=== PATIENT | male | born 1980 | race Caucasian/White ===

== ENCOUNTER → 2020-05-26 | Outpatient (CLI) | payer MEDICAID ==
[~2020-05-26] MED LIST: IOHEXOL-300 100 ML BOTTLE ONE
== END | disposition home or self-care (01) ==
LOC: CT 09:38
PROVIDERS: ATTEND Internal Medicine Hematology & Oncology
DX: D49.6 Neoplasm of unspecified behavior of brain (principal); N62 Hypertrophy of breast; I77.89 Other specified disorders of arteries and arterioles
CPT/HCPCS: 71260; Q9967

== ENCOUNTER 2021-09-25 12:00 | Inpatient (IN) | payer MEDICAID ==
[~2021-09-25] VITALS: Ht 182.9 cm; Wt 132.9 kg
[2021-09-25 14:20] LABS: BASOPHILS % 0.2 % (0.0-2.0); EOSINOPHILS % 1.5 % (0.0-5.0); HEMATOCRIT. 42.8 % (42.0-52.0); HEMOGLOBIN. 13.9 g/dL (14.0-18.0); LYMPHOCYTES % 23.2 % (20.0-50.0); MEAN CORPUSCULAR HEMOGLOBIN 30.2 pg (28.0-32.0); MEAN PLATELET VOLUME 10.6 fl (7.4-10.4); MONOCYTES % 9.4 % (2.0-8.0); NEUTROPHILS % 65.7 % (40.0-76.0); PLATELET 150 x1000/uL (130-400); RED CELL DISTRIBUTION WIDTH 12.8 % (11.6-14.6)
[2021-09-25 14:29] LABS: CHLORIDE 104 mEq/L (98-107)
[2021-09-25 14:33] LABS: ETHANOL BLOOD < 10 mg/dL
[2021-09-25 14:45] LABS: VALPROIC ACID < 3.0 ug/mL (50-100)
[2021-09-25] MEDS ORDERED: LORAZEPAM 2MG/ML CPJ IV NR (14:45)
[2021-09-25] MEDS ORDERED: LIDOCAINE HCL/PF 1% 2ML VIAL ONE (15:09)
[2021-09-25] MEDS ORDERED: LEVETIRACETAM 500MG PREMIX 100 ML IV NR (15:15)
[2021-09-25] MEDS ORDERED: LEVETIRACETAM 1000MG PREMIX 100 ML IV NR (15:15)
[2021-09-25] MEDS ORDERED: LEVETIRACETAM 500MG PREMIX 100 ML IV SCH (15:30)
[2021-09-25 15:32] LABS: BG BASE EXCESS -5.8 mmol/L (-2.0-2.0); BG CARBOXYHEMOGLOBIN 0.2 % (0.5-1.5); BG DEOXYHEMOGLOBIN 0.4 % (0.0-5.0); BG HCO3 ACT 19.5 mmol/L (22.0-26.0); BG METHEMOGLOBIN 0.2 % (0.0-1.5); BG OXYGEN SATURATION 99.6 % (92.0-98.5); BG OXYHEMOGLOBIN 99.2 % (94.0-97.0); BG PCO2 37.9 mmHg (35.0-45.0); BG PH 7.329 (7.350-7.450); BG PO2 391.3 mmHg (75.0-100.0); BG SAMPLE SITE RIGHT RADIAL; BG TOTAL HEMOGLOBIN 14.5 g/dL (12.0-18.0); BG VENT MODE MASK - NRB
[2021-09-25 16:23] LABS: CLARITY URINE CLEAR (CLEAR); COLOR URINE YELLOW (YELLOW); KETONES URINE NEGATIVE (NEGATIVE); LEUKOCYTE ESTERASE URINE NEGATIVE (NEGATIVE); NITRITE URINE NEGATIVE (NEGATIVE); OCCULT BLOOD URINE NEGATIVE (NEGATIVE); PROTEIN URINE TRACE (NEGATIVE); UROBILINOGEN URINE 0.2 E.U./dL (0.2-1.0)
[2021-09-25 16:34] LABS: *BENZODIAZEPINES SCREEN URINE NEGATIVE (NEGATIVE); *COCAINE SCREEN URINE NEGATIVE (NEGATIVE)
[2021-09-25 16:35] LABS: *AMPHETAMINES SCREEN URINE NEGATIVE (NEGATIVE); *BARBITURATES SCREEN URINE NEGATIVE (NEGATIVE); CANNABINOID URINE SCREEN NEGATIVE (NEGATIVE); METHADONE URINE SCREEN NEGATIVE (NEGATIVE); OPIATES URINE SCREEN NEGATIVE (NEGATIVE); PHENCYCLIDINE URINE SCREEN NEGATIVE (NEGATIVE)
[2021-09-25 18:20] VITALS: BP 126/60
[2021-09-25] MEDS ORDERED: LORAZEPAM 2MG/ML CPJ IV PRN (18:45)
[2021-09-25] MEDS ORDERED: ONDANSETRON HCL 4MG/2ML INJ IV PRN (19:15)
[2021-09-25 20:00] VITALS: BP 109/62
[2021-09-25] MEDS: ENOXAPARIN 30MG/0.3ML SYR SUBCUT SCH (21:30)
[2021-09-26] VITALS: BP 111/74
[2021-09-26] MEDS ORDERED: TOPI100T37 PO (03:10)
[2021-09-26] MEDS ORDERED: LEVE10006 PO (03:10)
[2021-09-26 04:00] VITALS: BP 103/55
[2021-09-26 08:05] VITALS: BP 109/61
[2021-09-26] MEDS: LEVETIRACETAM 500MG TABLET PO SCH ×2 (08:35→16:51)
[2021-09-26] MEDS: ENOXAPARIN 30MG/0.3ML SYR SUBCUT SCH ×2 (08:36→21:28)
[2021-09-26] MEDS ORDERED: ENOXAPARIN 40MG/0.4ML SYR SUBCUT SCH (09:00)
[2021-09-26] MEDS ORDERED: PSYL3.4P5 PO (11:03)
[2021-09-26] MEDS ORDERED: OLAN15TA35 MT (11:03)
[2021-09-26] MEDS ORDERED: DOCU-268 MT (11:03)
[2021-09-26] MEDS ORDERED: BENZ0.5T43 MT (11:03)
[2021-09-26] MEDS ORDERED: GUAN1TAB28 PO (11:04)
[2021-09-26 11:56] VITALS: BP 106/56
[2021-09-26 16:17] VITALS: BP 135/87
[2021-09-26] MEDS ORDERED: GADOTERATE MEGLUMINE 5 MMOL/10 ML VIAL IV ONE (19:03)
[2021-09-26 20:00] VITALS: BP 118/83
[2021-09-27] VITALS: BP 128/82
[2021-09-27 04:00] VITALS: BP 132/82
[2021-09-27 08:00] VITALS: BP 124/83
[2021-09-27] MEDS ORDERED: ACETAMINOPHEN 325MG TABLET PO PRN (08:45)
[2021-09-27] MEDS: LEVETIRACETAM 500MG TABLET PO SCH ×2 (09:22→17:53)
[2021-09-27] MEDS: ENOXAPARIN 30MG/0.3ML SYR SUBCUT SCH ×2 (09:23→21:52)
[2021-09-27 12:15] VITALS: BP 149/88
[2021-09-27 16:33] VITALS: BP 128/79
[2021-09-27 20:00] VITALS: BP 128/85
[2021-09-28] VITALS: BP 124/79
[2021-09-28 04:00] VITALS: BP 121/84
[2021-09-28 08:00] VITALS: BP 120/82
[2021-09-28] MEDS: LEVETIRACETAM 500MG TABLET PO SCH (08:57)
[2021-09-28] MEDS: ENOXAPARIN 30MG/0.3ML SYR SUBCUT SCH (08:58)
[2021-09-28 09:47] VITALS: BP 121/80
[2021-09-28 12:00] VITALS: BP 122/80
[2021-09-28 15:44] VITALS: BP 120/76
== END 2021-09-28 17:16 | disposition home or self-care (01) | DRG 53 ==
LOC: ER 12:49 → 6WST 15:29 → ENRESERV 16:29 → CANRESERV 18:26 → ENRESERV 18:26 → CANRESERV 09-26 07:20 → ENRESERV 09-26 07:20 → CANBEDREQ 09-26 16:31
PROVIDERS: ADMIT Internal Medicine; ATTEND Internal Medicine
PROC: 4A10X4Z Monitoring of Central Nervous Electrical Activity, External Approach (ICD-10-PCS; principal; 2021-09-28)
DX: G40.909 Epilepsy, unspecified, not intractable, without status epilepticus (principal); E87.2 Acidosis; I50.9 Heart failure, unspecified; E66.9 Obesity, unspecified; G93.9 Disorder of brain, unspecified; F79 Unspecified intellectual disabilities; R62.50 Unspecified lack of expected normal physiological development in childhood; Z68.39 Body mass index [BMI] 39.0-39.9, adult; Z85.841 Personal history of malignant neoplasm of brain
CPT/HCPCS: 36415; 36600; 70553; 71045; 80053; 80165; 80305; 80320; 81003; 82375; 82542; 82805; 83605; 83880; 84443; 84484; 85025; 93005; 99285; A9577; J1650; J1953; J2060; J3490; G0480

== ENCOUNTER 2022-01-08 20:47 | Emergency (ER) | payer MEDICAID ==
[~2022-01-08] VITALS: Ht 180.3 cm; Wt 118.0 kg
[~2022-01-08 20:47] MED LIST changes: +BENZ0.5T43 MT; +DOCU-268 MT; +GUAN1TAB28 PO; -IOHEXOL-300 100 ML BOTTLE ONE; +LEVE10006 PO; +OLAN15TA35 MT; +PSYL3.4P5 PO; +TOPI100T37 PO
[2022-01-09] MEDS ORDERED: LACTULOSE 20G/30ML UDC PO ONE (00:15)
[2022-01-09] MEDS: BENZTROPINE MESYLATE 1MG TABLET PO SCH ×2 (00:15→09:49)
[2022-01-09] MEDS ORDERED: LEVETIRACETAM 500MG TABLET PO SCH (09:00)
[2022-01-09 12:47] VITALS: BP 130/87
== END 2022-01-09 13:01 | disposition home or self-care (01) ==
LOC: ER 20:47
DX: S00.83XA Contusion of other part of head, initial encounter (principal); G40.909 Epilepsy, unspecified, not intractable, without status epilepticus; F79 Unspecified intellectual disabilities; W01.0XXA Fall on same level from slipping, tripping and stumbling without subsequent striking against object, initial encounter; Y93.89 Activity, other specified; Y92.018 Other place in single-family (private) house as the place of occurrence of the external cause
CPT/HCPCS: 70450; 72125; 99285; Z7610